=== PATIENT | female | born 1955 | race Caucasian/White ===

== ENCOUNTER → 2020-09-05 | Outpatient (CLI) | payer MEDICARE, MEDICAID ==
--- NOTE | 2020-09-05 10:26 | Diagnostic Imaging Report ---
EXAMINATION: Right ankle at 953 hours. INDICATION: Follow-up exam. 3 views were obtained. There are no prior studies available for comparison. FINDINGS: There is no fracture, dislocation or acute bony abnormality evident. The ankle mortise is not widened and the talar dome is smooth. The soft tissues are unremarkable. IMPRESSION: 1. There is no evidence for an acute bony abnormality. 2. If there are previous studies available for comparison they would be helpful. Dictated by: Dictated on workstation # [id number]
== END ==
LOC: RAD FS 09:43
PROVIDERS: ATTEND Nurse Practitioner
DX: S82.891D Other fracture of right lower leg, subsequent encounter for closed fracture with routine healing (principal); X58.XXXD Exposure to other specified factors, subsequent encounter
CPT/HCPCS: 73610